=== PATIENT | female | born 1995 | race Caucasian/White ===

== ENCOUNTER 2018-04-13 23:57 | Outpatient (CLI) | payer OTHER ==
[2018-04-14] MEDS: LACTATED RINGER'S 1,000 ML IV ×2 (00:43→03:16)
[2018-04-14 03:03] LABS: ADD UMIC NO; UR AMORPHOUS CRYSTAL MODERATE /HPF (NONE SEEN); UR ASCORBIC ACID NEGATIVE (NEGATIVE); UR BACTERIA FEW /HPF (NONE SEEN); UR BILIRUBIN (Dip) NEGATIVE (NEGATIVE); UR BLOOD (Dip) NEGATIVE (NEGATIVE); UR CLARITY SLIGHTLY CLOUDY (CLEAR); UR COLOR STRAW (YELLOW); UR GLUCOSE (Dip) NEGATIVE (NEGATIVE); UR KETONES (Dip) NEGATIVE (NEGATIVE); UR LEUKOCYTE ESTERASE (Dip) NEGATIVE Leu/ul (NEGATIVE); UR NITRITE (Dip) NEGATIVE (NEGATIVE); UR RBC 0 /HPF (0-5); UR SPECIFIC GRAVITY (Dip) 1.008 (1.003-1.030); UR SQUAMOUS EPITHELIAL CELL FEW /HPF (FEW); UR TOTAL PROTEIN (Dip) NEGATIVE (NEGATIVE); UR UROBILINOGEN (Dip) NEGATIVE (NEGATIVE); UR WBC 0 /HPF (0-5)
== END 2018-04-14 04:38 | disposition home or self-care (01) ==
LOC: OBT 23:57 → L-D 23:58 → OBT 04-14 04:38
DX: O62.9 Abnormality of forces of labor, unspecified (principal); Z3A.21 21 weeks gestation of pregnancy
CPT/HCPCS: 36415; 76815; 76817; 81001; 81003; 96360; 96361

== ENCOUNTER 2018-07-29 17:39 | Inpatient (IN) | payer OTHER ==
[2018-07-29] MEDS ORDERED: OXYTOCIN 30 UNITS/LR 500 ML IV ×3 (19:00)
[2018-07-29] MEDS ORDERED: BUTORPHANOL 2 MG INJ IV (19:00)
[2018-07-29] MEDS ORDERED: CARBOPROST 250 MCG INJ IM (19:00)
[2018-07-29] MEDS ORDERED: METHYLERGONOVINE 0.2 MG INJ IM (19:00)
[2018-07-29] MEDS ORDERED: LIDOCAINE 1% (MPF) 30 ML INJ INJ (19:00)
[2018-07-29] MEDS ORDERED: MISOPROSTOL 200 MCG TAB PR (19:00)
[2018-07-29] MEDS: LACTATED RINGER'S 1,000 ML IV ×2 (19:02→20:42)
[2018-07-29 19:28] LABS: ADD MAN DIFF? NO
[2018-07-29 19:31] LABS: WHITE BLOOD COUNT 9.6 10^3/ul (4.8-10.8)
[2018-07-29 19:31] LABS: BASOPHILS % 0.3 % (0.0-2.0); EOSINOPHILS # 0.1 10^3/ul (0.0-0.5); EOSINOPHILS % 0.6 % (0.0-7.0); HEMATOCRIT 32.9 % (37.0-47.0); HEMOGLOBIN 10.5 g/dl (12.0-16.0); LYMPHOCYTES # 1.9 10^3/ul (0.8-2.9); LYMPHOCYTES % 20.1 % (15.0-51.0); MEAN CORPUSCULAR HEMOGLOBIN 26.1 pg (29.0-33.0); MEAN CORPUSCULAR HGB CONC 31.9 g/dl (32.0-37.0); MEAN CORPUSCULAR VOLUME 81.6 fl (82.0-101.0); MEAN PLATELET VOLUME 9.3 fl (7.4-10.4); MONOCYTE # 0.9 10^3/ul (0.3-0.9); MONOCYTES % 9.5 % (0.0-11.0); NEUTROPHIL # 6.6 10^3/ul (1.6-7.5); NEUTROPHILS % 68.8 % (39.0-77.0); PLATELET COUNT 301 10^3/UL (140-415); RED BLOOD COUNT 4.03 10^6/ul (4.20-5.40); RED CELL DISTRIBUTION WIDTH 15.2 % (11.5-14.5)
[2018-07-29 19:50] LABS: INR 0.93; PROTIME 12.6 Sec (11.9-14.9)
[2018-07-29 19:51] LABS: PARTIAL THROMBOPLASTIN TIME 27.2 Sec (23.0-35.0)
[2018-07-29 19:53] LABS: ADD UMIC YES; UR AMORPHOUS CRYSTAL MANY /HPF (NONE SEEN); UR ASCORBIC ACID NEGATIVE (NEGATIVE); UR BACTERIA FEW /HPF (NONE SEEN); UR BILIRUBIN (Dip) NEGATIVE (NEGATIVE); UR BLOOD (Dip) NEGATIVE (NEGATIVE); UR CLARITY CLOUDY (CLEAR); UR COLOR YELLOW (YELLOW); UR GLUCOSE (Dip) NEGATIVE (NEGATIVE); UR KETONES (Dip) NEGATIVE (NEGATIVE); UR LEUKOCYTE ESTERASE (Dip) NEGATIVE Leu/ul (NEGATIVE); UR MUCUS FEW /HPF (NONE SEEN); UR NITRITE (Dip) NEGATIVE (NEGATIVE); UR RBC 2 /HPF (0-5); UR SPECIFIC GRAVITY (Dip) 1.019 (1.003-1.030); UR SQUAMOUS EPITHELIAL CELL MODERATE /HPF (FEW); UR TOTAL PROTEIN (Dip) NEGATIVE (NEGATIVE); UR UROBILINOGEN (Dip) NEGATIVE (NEGATIVE); UR WBC 4 /HPF (0-5)
[2018-07-29 20:21] LABS: HEPATITIS B SURFACE ANTIGEN NEGATIVE (NEGATIVE)
[2018-07-29] MEDS: TERBUTALINE 1 MG/ML INJ SC (20:42)
[2018-07-30] MEDS: TERBUTALINE 1 MG/ML INJ SC (00:48)
[2018-07-30] MEDS: LACTATED RINGER'S 1,000 ML IV ×3 (02:45→19:44)
[2018-07-30] MEDS: DEXTROSE 5%-LR 1,000 ML IV (10:17)
[2018-07-30] MEDS ORDERED: DEXTROSE 5%-LR 1,000 ML IV (10:30)
[2018-07-30 15:25] LABS: RAPID PLASMA REAGIN NONREACTIVE (NR)
[2018-07-30] MEDS: CEFAZOLIN 2 GM/50 ML (PMX) 50 ML IVPB (23:24)
[2018-07-30] MEDS: BETAMET NA PHOS/AC(6 MG/ML) 2 ML INJ SYG IM (23:25)
[2018-07-31] MEDS: LACTATED RINGER'S 1,000 ML IV (04:48)
[2018-07-31] MEDS: CEFAZOLIN 2 GM/50 ML (PMX) 50 ML IVPB ×3 (06:42→07:31)
[2018-07-31] MEDS: BETAMET NA PHOS/AC(6 MG/ML) 2 ML INJ SYG IM (11:07)
== END 2018-07-31 12:30 | disposition home or self-care (01) | DRG 833 ==
LOC: OBT 17:39 → L-D 07-30 13:24 → OBT 18:30 → L-D 18:30
PROVIDERS: Obstetrics & Gynecology
DX: O34.219 Maternal care for unspecified type scar from previous cesarean delivery (principal); Z3A.36 36 weeks gestation of pregnancy
CPT/HCPCS: 81001; 85025; 85610; 85730; 86592; 86850; 86900; 86901; 87340

== ENCOUNTER 2018-08-17 07:13 | Inpatient (IN) | payer OTHER ==
[2018-08-17 08:26] LABS: ADD MAN DIFF? NO
[2018-08-17] MEDS: LACTATED RINGER'S 1,000 ML IV ×2 (08:28→09:03)
[2018-08-17] MEDS ORDERED: MISOPROSTOL 200 MCG TAB PR ×2 (08:30→12:30)
[2018-08-17] MEDS ORDERED: METHYLERGONOVINE 0.2 MG INJ IM ×2 (08:30→12:30)
[2018-08-17] MEDS ORDERED: CARBOPROST 250 MCG INJ IM ×2 (08:30→12:30)
[2018-08-17] MEDS ORDERED: OXYTOCIN 30 UNITS/LR 500 ML IV ×3 (08:30→12:30)
[2018-08-17 08:31] LABS: BASOPHILS % 0.4 % (0.0-2.0); EOSINOPHILS # 0.1 10^3/ul (0.0-0.5); EOSINOPHILS % 0.6 % (0.0-7.0); HEMATOCRIT 34.6 % (37.0-47.0); LYMPHOCYTES # 1.9 10^3/ul (0.8-2.9); MEAN CORPUSCULAR HEMOGLOBIN 25.7 pg (29.0-33.0); MEAN CORPUSCULAR HGB CONC 31.8 g/dl (32.0-37.0); MEAN CORPUSCULAR VOLUME 80.8 fl (82.0-101.0); MONOCYTE # 0.8 10^3/ul (0.3-0.9); MONOCYTES % 8.1 % (0.0-11.0); NEUTROPHIL # 7.2 10^3/ul (1.6-7.5); NEUTROPHILS % 71.1 % (39.0-77.0); PLATELET COUNT 285 10^3/UL (140-415); RED BLOOD COUNT 4.28 10^6/ul (4.20-5.40); RED CELL DISTRIBUTION WIDTH 15.8 % (11.5-14.5)
[2018-08-17 08:31] LABS: WHITE BLOOD COUNT 10.1 10^3/ul (4.8-10.8)
[2018-08-17 08:43] LABS: INR 0.89; PROTIME 12.1 Sec (11.9-14.9); PT RATIO 0.9
[2018-08-17 08:44] LABS: PARTIAL THROMBOPLASTIN TIME 27.6 Sec (23.0-35.0)
[2018-08-17] MEDS ORDERED: ONDANSETRON 4 MG INJ ×2 (08:57→11:44)
[2018-08-17] MEDS ORDERED: CITRIC ACID/NA CITRATE 30 ML CUP (08:58)
[2018-08-17] MEDS: CITRIC ACID/NA CITRATE 30 ML CUP PO ×2 (09:20→10:30)
[2018-08-17] MEDS: ONDANSETRON 4 MG INJ IV ×3 (09:20→15:52)
[2018-08-17] MEDS ORDERED: PHENYLephrine (100 MCG/ML) 5ML SYG (10:26)
[2018-08-17] MEDS ORDERED: morphine SULFATE/PF (10 MG/10 ML) INJ (10:26)
[2018-08-17] MEDS ORDERED: OXYTOCIN 10 UNIT INJ (10:26)
[2018-08-17] MEDS ORDERED: BUPIVACAINE 0.75%/DEXT (SPINAL) 2 ML INJ (10:26)
[2018-08-17] MEDS ORDERED: NALBUPHINE HCL (10 MG/1 ML) INJ IV (11:30)
[2018-08-17] MEDS ORDERED: morphine 2 MG INJ IV ×2 (11:30)
[2018-08-17] MEDS ORDERED: HYDROCODONE/APAP (5/325) TAB PO (11:30)
[2018-08-17] MEDS ORDERED: NALOXONE (0.4 MG/ML) INJ IV (11:30)
[2018-08-17] MEDS ORDERED: DIPHENHYDRAMINE 50 MG INJ IV (11:30)
[2018-08-17] MEDS ORDERED: HYDROmorphONE 0.5 MG/0.5 ML SYG IV ×2 (11:30)
[2018-08-17] MEDS ORDERED: ACETAMINOPHEN 500 MG TAB PO (11:30)
[2018-08-17] MEDS: CEFAZOLIN 2 GM/50 ML (PMX) 50 ML IVPB (11:42)
[2018-08-17] MEDS ORDERED: METOCLOPRAMIDE 10 MG INJ (11:44)
[2018-08-17] MEDS ORDERED: KETOROLAC 30 MG INJ (11:45)
[2018-08-17] MEDS ORDERED: DEXAMETHASONE 4 MG/ML 1 ML INJ (11:45)
[2018-08-17] MEDS: OXYTOCIN 30 UNITS/LR 500 ML IV ×2 (12:10→15:54)
[2018-08-17] MEDS ORDERED: DEXTROSE 5%-LR 1,000 ML IV (12:11)
[2018-08-17] MEDS ORDERED: METHYLERGONOVINE 0.2 MG TAB PO (12:30)
[2018-08-17] MEDS: IBUPROFEN 800 MG TAB PO ×2 (14:00→22:00)
[2018-08-17] MEDS: ENOXAPARIN 40 MG/0.4 ML SYG SC (14:44)
[2018-08-17 15:31] LABS: RAPID PLASMA REAGIN NONREACTIVE (NR)
[2018-08-17] MEDS: SENNA/DOCUSATE NA (8.6MG/50MG) TAB PO (21:00)
[2018-08-18] MEDS: ONDANSETRON 4 MG INJ IV (00:14)
[2018-08-18] MEDS: LACTATED RINGER'S 1,000 ML IV (01:46)
[2018-08-18] MEDS: IBUPROFEN 800 MG TAB PO ×3 (06:00→22:07)
[2018-08-18 06:45] LABS: ADD MAN DIFF? NO
[2018-08-18 06:49] LABS: WHITE BLOOD COUNT 13.6 10^3/ul (4.8-10.8)
[2018-08-18 06:49] LABS: BASOPHILS % 0.3 % (0.0-2.0); EOSINOPHILS % 0.2 % (0.0-7.0); HEMATOCRIT 29.1 % (37.0-47.0); HEMOGLOBIN 9.3 g/dl (12.0-16.0); LYMPHOCYTES # 2.6 10^3/ul (0.8-2.9); LYMPHOCYTES % 19.2 % (15.0-51.0); MEAN CORPUSCULAR HEMOGLOBIN 25.7 pg (29.0-33.0); MEAN CORPUSCULAR VOLUME 80.4 fl (82.0-101.0); MEAN PLATELET VOLUME 9.1 fl (7.4-10.4); MONOCYTE # 1.3 10^3/ul (0.3-0.9); MONOCYTES % 9.2 % (0.0-11.0); NEUTROPHIL # 9.6 10^3/ul (1.6-7.5); NEUTROPHILS % 70.5 % (39.0-77.0); PLATELET COUNT 235 10^3/UL (140-415); RED BLOOD COUNT 3.62 10^6/ul (4.20-5.40); RED CELL DISTRIBUTION WIDTH 15.9 % (11.5-14.5)
[2018-08-18] MEDS: SENNA/DOCUSATE NA (8.6MG/50MG) TAB PO ×2 (08:08→22:06)
[2018-08-18] MEDS: KETOROLAC 30 MG INJ IV (08:10)
[2018-08-18] MEDS ORDERED: DIPHTH/TET/ACEL PERTUSS (ADULT) 0.5 ML VIAL IM* (11:00)
[2018-08-18] MEDS: HYDROCODONE/APAP (5/325) TAB GTB ×2 (14:50→22:06)
[2018-08-19] MEDS: HYDROCODONE/APAP (5/325) TAB GTB ×3 (05:44→21:39)
[2018-08-19] MEDS: IBUPROFEN 800 MG TAB PO ×3 (05:44→21:39)
[2018-08-19] MEDS: SENNA/DOCUSATE NA (8.6MG/50MG) TAB PO ×2 (09:58→21:39)
[2018-08-19] MEDS: LANOLIN HPA 1 PKT TOP (10:31)
[2018-08-20] MEDS: HYDROCODONE/APAP (5/325) TAB NGT (04:20)
[2018-08-20] MEDS: IBUPROFEN 800 MG TAB PO ×2 (05:58→13:19)
[2018-08-20] MEDS: HYDROCODONE/APAP (5/325) TAB GTB ×2 (05:58→14:00)
[2018-08-20] MEDS ORDERED: MEASLES,MUMPS,RUBELLA VACCINE INJ SC* (09:00)
[2018-08-20] MEDS: SENNA/DOCUSATE NA (8.6MG/50MG) TAB PO (09:51)
[2018-08-20] MEDS: DIPHTH/TET/ACEL PERTUSS (ADULT) 0.5 ML VIAL IM* (09:52)
== END 2018-08-20 15:40 | disposition home or self-care (01) | DRG 788 ==
LOC: L-D 07:13 → PP1 15:49
PROVIDERS: Obstetrics & Gynecology
PROC: 10D00Z1 Extraction of Products of Conception, Low, Open Approach (ICD-10-PCS; principal; 2018-08-17 09:00)
DX: O34.219 Maternal care for unspecified type scar from previous cesarean delivery (principal); Z3A.39 39 weeks gestation of pregnancy; Z37.0 Single live birth; Z23 Encounter for immunization
CPT/HCPCS: 85025; 85610; 85730; 86592; 86850; 86900; 86901; 90686; 90715; 99464